=== PATIENT | female | born 1960 | race Caucasian/White ===

== ENCOUNTER 2022-04-22 12:30 | Inpatient (IN) | payer MEDICARE ==
[~2022-04-22] VITALS: Ht 167.6 cm; Wt 102.6 kg
[2022-04-22 13:34] LABS: HEMOGLOBIN 12.1 gm/dl (12.3-15.3); RED BLOOD COUNT 4.13 M/UL (4.00-5.10); WHITE BLOOD COUNT 6.8 K/UL (4.5-11.0)
[2022-04-22] MEDS ORDERED: ATENOLOL100 MG PO (16:30)
[2022-04-22] MEDS ORDERED: CARVEDILOL12.5 MG PO (16:30)
[2022-04-22] MEDS ORDERED: DICYCLOMINE HCL10 MG PO (16:31)
[2022-04-22] MEDS ORDERED: ZETIA10 MG PO (16:31)
[2022-04-22] MEDS ORDERED: CLONAZEPAM1 MG PO (16:31)
[2022-04-22] MEDS ORDERED: GABAPENTIN800 MG PO (16:32)
[2022-04-22] MEDS ORDERED: FENOFIBRATE200 MG PO (16:32)
[2022-04-22] MEDS ORDERED: VASCEPA1 GM PO (16:33)
[2022-04-22] MEDS ORDERED: HYDROCODON-ACE1 EAC6 PO (16:33)
[2022-04-22] MEDS ORDERED: TOUJEO MAX300 UNIT/1 SQ (16:33)
[2022-04-22] MEDS ORDERED: MECLIZINE HCL25 MG PO (16:34)
[2022-04-22] MEDS ORDERED: LEVOTHYROXINE75 MCG PO (16:34)
[2022-04-22] MEDS ORDERED: HUMALOG100 UNIT/3 INJ (16:34)
[2022-04-22] MEDS ORDERED: TIZANIDINE HCL4 MG PO (16:35)
[2022-04-22] MEDS ORDERED: VALSARTAN320 MG PO (16:35)
[2022-04-23 03:30] LABS: HEMOGLOBIN 10.2 gm/dl (12.3-15.3); WHITE BLOOD COUNT 5.6 K/UL (4.5-11.0)
[2022-04-23 03:31] LABS: BUN/CREATININE RATIO 16 (0-10)
[2022-04-23 03:39] LABS: RED BLOOD COUNT 3.47 M/UL (4.00-5.10)
[2022-04-24 01:51] LABS: HEMOGLOBIN 10.7 gm/dl (12.3-15.3); RED BLOOD COUNT 3.67 M/UL (4.00-5.10); WHITE BLOOD COUNT 5.3 K/UL (4.5-11.0)
[2022-04-24 03:47] LABS: BUN/CREATININE RATIO 18 (0-10)
[2022-04-25 03:04] LABS: HEMOGLOBIN 10.2 gm/dl (12.3-15.3); RED BLOOD COUNT 3.46 M/UL (4.00-5.10); WHITE BLOOD COUNT 5.5 K/UL (4.5-11.0)
[2022-04-25 03:16] LABS: BUN/CREATININE RATIO 18 (0-10)
[2022-04-25 07:10] LABS: HBSAG SCREEN Negative (Negative)
[2022-04-25 09:13] LABS: COMPLEMENT C3, SERUM 137 mg/dL (82-167); COMPLEMENT C4, SERUM 33 mg/dL (12-38)
[2022-04-25 17:08] LABS: ANTI-DSDNA ANTIBODIES <1 IU/mL (0-9)
[2022-04-26 05:21] LABS: HEMOGLOBIN 9.9 gm/dl (12.3-15.3); RED BLOOD COUNT 3.4 M/UL (4.00-5.10); WHITE BLOOD COUNT 5.8 K/UL (4.5-11.0)
--- NOTE | 2022-04-26 19:46 | NUR ---
PATIENT CALLED OUT ABOUT IV BEEPING. WHEN I WENT TO FIX THE PUMP, THE B LINE SETTINGS FOR HER LASIX DRIP HAD BEEN CLEARED. PATIENT WAS EDUCATED ON THE TOPIC OF NOT TOUCHING THE IV PUMP SETTINGS. PATIENT SAID SHE HAD NOT TOUCHED IT. I ASKED PATIENT AGAIN TO CALL OUT IF PUMP BEEPS INSTEAD OF TRYING TO FIX IT HERSELF. PATIENT STATED HER SON HAD TRIED TO STOP THE BEEPING AND THAT WAS WHAT MUST HAVE CHANGED THE SETTINGS. EHR WILL BE UPDATED CHANGES OCCUR.
[2022-04-27 14:12] LABS: A/G RATIO 0.7 (0.7-1.7); ALBUMIN 1.6 g/dL (2.9-4.4); ALPHA-1-GLOBULIN 0.2 g/dL (0.0-0.4); ALPHA-2-GLOBULIN 0.9 g/dL (0.4-1.0); BETA GLOBULIN 0.7 g/dL (0.7-1.3); GAMMA GLOBULIN 0.4 g/dL (0.4-1.8); GLOBULIN, TOTAL 2.3 g/dL (2.2-3.9); IMMUNOGLOBULIN A, QN, SERUM 205 mg/dL (87-352); IMMUNOGLOBULIN G, QN, SERUM 480 mg/dL (586-1602); IMMUNOGLOBULIN M, QN, SERUM 40 mg/dL (26-217); M-SPIKE Not Observed g/dL (Not Observed); PROTEIN, TOTAL, SERUM 3.9 g/dL (6.0-8.5)
[2022-04-27 19:20] LABS: ADENOVIRUS F 40/41 Not Detected (Negative); ASTROVIRUS Not Detected (Negative); CAMPYLOBACTER Not Detected (Negative); CRYPTOSPORIDIUM Not Detected (Negative); E.COLI 0157 Not Detected (Negative); ENTAMOEBA HISTOLYTICA Not Detected (Negative); ENTEROAGGREGATIVE E.COLI (EAEC Not Detected (Negative); ENTEROPATHOGENIC E.COLI (EPEC) Not Detected (Negative); ENTEROTOXIGENIC E.COLI (ETEC) Not Detected (Negative); GIARDIA LAMBLIA Not Detected (Negative); NOROVIRUS GI/GII Not Detected (Negative); PLESIOMONAS SHIGELLOIDES Not Detected (Negative); ROTOVIRUS A Not Detected (Negative); SALMONELLA Not Detected (Negative); SAPOVIRUS Not Detected (Negative); SHIG/ENTEROINVAS.ECOLI (EIEC) Not Detected (Negative); SHIGA-LIK TOX.PRO.E.COLI (STEC Not Detected (Negative); VIBRIO Not Detected (Negative); VIBRIO CHOLERAE Not Detected (Negative); YERSINIA ENTEROCOLITICA Not Detected (Negative)
[2022-04-28 03:40] LABS: RED BLOOD COUNT 3.37 M/UL (4.00-5.10); WHITE BLOOD COUNT 6.5 K/UL (4.5-11.0)
[2022-04-28 08:14] LABS: CLOSTRIDIUM DIFFICILE TOX A/B Not Detected (Negative)
[2022-04-28] MEDS ORDERED: FERROUS SULFAT325 M2 PO (12:21)
[2022-04-28] MEDS ORDERED: COZAAR 25MG TAB25 MG PO (12:21)
[2022-04-28] MEDS ORDERED: BUMETANIDE1 MG PO (12:23)
[2022-04-29 15:11] LABS: ANTIMYELOPEROXIDASE (MPO) ABS <0.2 units (0.0-0.9); ANTIPROTEINASE 3 (PR-3) ABS <0.2 units (0.0-0.9); ATYPICAL PANCA <1:20 titer (Neg:<1:20); CYTOPLASMIC (C-ANCA) <1:20 titer (Neg:<1:20); PERINUCLEAR (P-ANCA) <1:20 titer (Neg:<1:20)
== END 2022-04-28 15:27 | disposition home or self-care (01) | DRG 291 ==
LOC: ER1 12:30 → CDU 17:20 → M/S 17:20
PROVIDERS: Internal Medicine Infectious Disease; Internal Medicine Nephrology; Nurse Practitioner; ADMIT Internal Medicine
DX: I13.0 Hypertensive heart and chronic kidney disease with heart failure and stage 1 through stage 4 chronic kidney disease, or unspecified chronic kidney disease (principal); I50.33 Acute on chronic diastolic (congestive) heart failure; Z20.822 Contact with and (suspected) exposure to COVID-19; N17.9 Acute kidney failure, unspecified; M62.82 Rhabdomyolysis; D50.9 Iron deficiency anemia, unspecified; D63.1 Anemia in chronic kidney disease; E11.22 Type 2 diabetes mellitus with diabetic chronic kidney disease; E03.9 Hypothyroidism, unspecified; A08.4 Viral intestinal infection, unspecified; I48.0 Paroxysmal atrial fibrillation; E66.01 Morbid (severe) obesity due to excess calories; I08.3 Combined rheumatic disorders of mitral, aortic and tricuspid valves; N18.32 Chronic kidney disease, stage 3b; I16.0 Hypertensive urgency; G89.4 Chronic pain syndrome; Z79.01 Long term (current) use of anticoagulants; Z90.49 Acquired absence of other specified parts of digestive tract; Z87.891 Personal history of nicotine dependence; Z83.3 Family history of diabetes mellitus; Z82.49 Family history of ischemic heart disease and other diseases of the circulatory system; Z88.8 Allergy status to other drugs, medicaments and biological substances; Z88.6 Allergy status to analgesic agent; Z68.36 Body mass index [BMI] 36.0-36.9, adult
CPT/HCPCS: ECHO; 0240U; 36415; 71045; 80048; 80053; 81001; 82043; 82550; 82553; 82570; 82728; 82784; 82962; 83036; 83520; 83540; 83550; 83735; 83874; 83880; 84155; 84156; 84165; 84443; 84484; 85025; 85027; 86038; 86160; 86225; 86256; 86334; 87340; 87449; 87507; 93005; 93306; 96372; 96374; 96376; 99285; G0378; J0696; J1205; J1644; J1650; J1756; J1940; P9047